=== PATIENT | male | born 1990 | race Caucasian/White ===

== ENCOUNTER 2019-06-27 08:54 | Emergency (ER) | payer SELFPAY ==
[~2019-06-27] VITALS: Ht 172.7 cm; Wt 91.0 kg
[2019-06-27] MEDS ORDERED: LIDOCAINE HCL 1% 20ML VIAL (Pyxis) INJ INFIL ONE (11:15)
[2019-06-27] MEDS ORDERED: BACITRACIN ZINC OINT UDPKT TOP ONE (12:00)
[2019-06-27 12:58] VITALS: BP 128/93
== END 2019-06-27 12:58 | disposition home or self-care (01) ==
LOC: ER 08:54
DX: S61.315A Laceration without foreign body of left ring finger with damage to nail, initial encounter (principal); W22.8XXA Striking against or struck by other objects, initial encounter; Y93.89 Activity, other specified; Y92.89 Other specified places as the place of occurrence of the external cause; Y99.8 Other external cause status
CPT/HCPCS: 11730; 73140; 99284; J3490